=== PATIENT | female | born 1975 | race Caucasian/White ===

== ENCOUNTER → 2023-07-06 | Outpatient (REF) | payer BC, SELFPAY ==
[2023-07-06 10:08] LABS: Absolute Lymphocyte Count 1.98 X10^3/uL (0.83-4.51); Absolute Neutrophil Count 4.8 X10^3/uL (2.0-7.7); Basophil# 0.03 X10^3/uL; Basophil% 0.4 % (0-1); Eosinophil# 0.45 X10^3/uL; Eosinophils% 5.6 % (0-5); Hemoglobin 9.2 g/dL (12.0-15.0); Lymphocyte # 1.98 X10^3/ul (0.83-4.51); Lymphocyte % 24.6 % (19-41); Mean Corp Hgb Conc 32.9 g/dL (32-36); Mean Corpuscular Hgb 28.9 pg (27.0-32.0); Mean Corpuscular Volume 88.1 fL (81-99); Mean Platelet Vol. 10.4 fl (6.2-12.0); Monocyte% 9.9 % (0-10); NRBC Flagged by Analyzer 0 % (0-5); Neutrophil # 4.76 X10^3/uL (2.7-7.7); Neutrophil % 59.1 % (47-70); Platelet Count 445 K/mm3 (150-450); RBC Distribution Width CV 16.6 % (11.6-14.6); RBC Distribution Width SD 52.5 fl (35.1-43.9); Red Blood Count 3.18 M/mm3 (4.2-5.4); White Blood Count 8.1 K/mm3 (4.4-11.0)
[2023-07-06 10:30] LABS: Vitamin B12 468 pg/mL (211-911); Vitamin D,25 Hydroxy 58.5 ng/mL
[2023-07-06 10:55] LABS: Anion Gap 4 (5-15); BUN 9 mg/dL (7-18); Calcium,Total 10.4 mg/dL (8.5-10.1); Chloride 97 mmol/L (98-107); Creatinine, Serum 1.13 mg/dL (0.55-1.02); EST Glomerular Filtration Rate 54 mL/min (>60); Est Glom Filt Rate - Afr Amer 66 mL/min (>60); Glucose 137 mg/dL (74-106); Magnesium 2.2 mg/dL (1.6-2.6); Potassium 4.3 mmol/L (3.5-5.1); Sodium Level 130 mmol/L (136-145); Thyroid Stim Hormone (TSH) 1.79 uIU/mL (0.358-3.74)
== END ==
LOC: OLS.SW 08:50
PROVIDERS: PCP Family Medicine; Visit Provider Internal Medicine
DX: Z79.2 Long term (current) use of antibiotics (principal); Z00.00 Encounter for general adult medical examination without abnormal findings
CPT/HCPCS: 36415; 80048; 82306; 82607; 83735; 84443; 85025

== ENCOUNTER → 2023-07-09 | Outpatient (REF) | payer BC, SELFPAY ==
[2023-07-09 09:25] LABS: CPK Total, Creatine Kinase 48 U/L (26-192)
== END ==
LOC: OLS.SW 05:00
PROVIDERS: PCP Family Medicine; Visit Provider Internal Medicine
DX: Z79.2 Long term (current) use of antibiotics (principal); Z00.00 Encounter for general adult medical examination without abnormal findings
CPT/HCPCS: 36415; 82550

== ENCOUNTER 2024-02-12 14:30 | Outpatient (RCR) | payer BC, SELFPAY ==
--- NOTE | 2023-11-13 11:33 | HP.PTEVAL_ITS ---
Patient's Visit Information Visit Information Visit Information: AUTUMN DELACRUZ is a 48 year old F referred to Physical Therapy by OANH LUCAS with a diagnosis of Myofascial Pain. Date of Evaluation: 11/13/23 Physical Therapist: Padmini Dutta DPT Visit Plan Frequency: 2x /Week Duration: 4 Weeks Plan: Aquatic PT-Focus on LE and core strength/stabilization-ROM and UE strength, pain mgmt and functional mobility-GENTLE! 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 The right side is now positive for MRSA again. She has so much pain and no strength from her SI joint up. Her left arm is good. Lots of decreased strength in her core and right arm. She d oes not currently have any open wounds. Her pain in her shoulder is a 6/10 and her back is a 4/10- that is constant. If she sits for an hour and a half the pain will increase in her back to a 8/10. The pain does not radiate above the belt line. The pain in the shoulder does radiate to the elbow and rarely to the hand. The right hand does not have N/T. The left first three fingers are numb- she has had an EMG and she has moderate carpal tunnel. She has no pain in the legs or N/T in the toes. 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 Trying to sleep is a nightmare- she is a side sleeper but she can't- she is sleeping on her left side and on her back. Goals: improve her ROM and decrease pain so that she can sleep better at night. Therapy: PT on just her arm at [facility]. She is able to perform all ADL's it just takes her longer. 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 PMHx: MRSA Meds: doxycycline, Effexor, flexural, Celebrex, Pantropolol Objective Objective: Posture: forward head, rounded shoulders- can correct with verbal cues but does not maintain Observation: scar over right anterior shoulder- guarded- very slow and methodical with all movement Gait: slow alicia and guarded- decreased lumbar rotation and arm swing bilateral HR/TR: able with UE A SLS: Left: 3 seconds Right: 1 second then loss of balance ROM: Lumbar: Flexion: hands to knees with pain Extn: neutral with pain, SB and Rotation: WNL without pain but increased cavitation's with SB Bilateral LE: WFL in all other planes. Cervical: WFL with cervical fusions. Shoulder Right: Flexion: 110 degrees Abd: 90 degrees IR: to belt line, ER: 40 degrees, Elbow/Wrist: WNL Left: WNL in all planes Strength: Shoulder: Right: 2+/5 throughout, Elbow: 3+/5 Left: 4-/5 throughout, Elbow: 4-/[address] [employer]: minimal. Scap: poor, Core: poor, Hip: 4-/5 throughout, Knee: 4-/5 throghout, Ankle: 4+/5 Sensation: WNL to gross touch throughout with the exception of the right shoulder is diminished Balance/Special Test Scores Lower Extremity Functional Score: 22 Goals Goal 1:: Patient will be I with HEP and progression Goal Time Frame: 4-6 Weeks Goal 2:: Patient will maintain proper posture t/o tx session to demo increased core s/s Goal Time Frame: 4-6 Weeks Goal 3:: Patient will demo FULL AROM of the right shoulder Goal Time Frame: 4-6 Weeks Goal 4:: Patient will report sleeping through the night for 1 night Goal Time Frame: 4-6 Weeks Goal 5:: Patient will report less than 2/10 pain for 1 day Goal Time Frame: 4-6 Weeks Goal 6:: Patient will report 80% improvement Goal Time Frame: 4-6 Weeks Rehabilitation Potential Physical Therapy Diagnosis: Patient presents with hypomobility- she has decreased right shoulder ROM, lumbar ROM, LE, UE, scapular and core strength/stabilization, proprioception, flex and muscular endurance leading to increased pain with ADL's. Rehabilitation Potential: Fair Anticipated Interventions Patient/Client Instruction: Educate patient on: Benefits of Fitness Program Therapeutic Exercise to Include: Strength training, Endurance training, Coordination, Agility training, Body mechanics, Postural training, Flexibilty training, Gait and locomotor training, Neuromotor development, In an aquatic setting, Dynamic Lumbar Stabilization and Scapular Strength/Stabilization For the Purpose of:: To improve muscle performance and motor function Text: Thank you for the opportunity to evaluate your patient. For Medicare and Medicare HMO plans, please review the plan of care and approve it. It will need to be FAXED BACK to us at [phone] for Medicare purposes. For Medicare only, by signing this I certify the plan of care. Please let me know if there are questions or concerns regarding this plan of care. Physician Signature: Date:
--- NOTE | 2023-11-13 11:34 | HP.PTEVAL_ITS ---
Patient's Visit Information Visit Information Visit Information: AUTUMN DELACRUZ is a 48 year old F referred to Physical Therapy by OANH LUCAS with a diagnosis of Myofascial Pain. Date of Evaluation: 11/13/23 Physical Therapist: Padmini Dutta DPT Visit Plan Frequency: 2x /Week Duration: 4 Weeks Plan: Aquatic PT-Focus on LE and core strength/stabilization-ROM and UE strength, pain mgmt and functional mobility-GENTLE! 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 The right side is now positive for MRSA again. She has so much pain and no strength from her SI joint up. Her left arm is good. Lots of decreased strength in her core and right arm. She d oes not currently have any open wounds. Her pain in her shoulder is a 6/10 and her back is a 4/10- that is constant. If she sits for an hour and a half the pain will increase in her back to a 8/10. The pain does not radiate above the belt line. The pain in the shoulder does radiate to the elbow and rarely to the hand. The right hand does not have N/T. The left first three fingers are numb- she has had an EMG and she has moderate carpal tunnel. She has no pain in the legs or N/T in the toes. 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 Trying to sleep is a nightmare- she is a side sleeper but she can't- she is sleeping on her left side and on her back. Goals: improve her ROM and decrease pain so that she can sleep better at night. Therapy: PT on just her arm at [facility]. She is able to perform all ADL's it just takes her longer. 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 PMHx: MRSA Meds: doxycycline, Effexor, flexural, Celebrex, Pantropolol Objective Objective: Posture: forward head, rounded shoulders- can correct with verbal cues but does not maintain Observation: scar over right anterior shoulder- guarded- very slow and methodical with all movement Gait: slow alicia and guarded- decreased lumbar rotation and arm swing bilateral HR/TR: able with UE A SLS: Left: 3 seconds Right: 1 second then loss of balance ROM: Lumbar: Flexion: hands to knees with pain Extn: neutral with pain, SB and Rotation: WNL without pain but increased cavitation's with SB Bilateral LE: WFL in all other planes. Cervical: WFL with cervical fusions. Shoulder Right: Flexion: 110 degrees Abd: 90 degrees IR: to belt line, ER: 40 degrees, Elbow/Wrist: WNL Left: WNL in all planes Strength: Shoulder: Right: 2+/5 throughout, Elbow: 3+/5 Left: 4-/5 throughout, Elbow: 4-/5 Mining Teacher: minimal. Scap: poor, Core: poor, Hip: 4-/5 throughout, Knee: 4-/5 throughout, Ankle: 4+/5 Sensation: WNL to gross touch throughout with the exception of the right shoulder is diminished Flex: hamstrings: severe, Gastroc: severe Balance/Special Test Scores Lower Extremity Functional Score: 22 Goals Goal 1:: Patient will be I with HEP and progression Goal Time Frame: 4-6 Weeks Goal 2:: Patient will maintain proper posture t/o tx session to demo increased core s/s Goal Time Frame: 4-6 Weeks Goal 3:: Patient will demo FULL AROM of the right shoulder Goal Time Frame: 4-6 Weeks Goal 4:: Patient will report sleeping through the night for 1 night Goal Time Frame: 4-6 Weeks Goal 5:: Patient will report less than 2/10 pain for 1 day Goal Time Frame: 4-6 Weeks Goal 6:: Patient will report 80% improvement Goal Time Frame: 4-6 Weeks Rehabilitation Potential Physical Therapy Diagnosis: Patient presents with hypomobility- she has decreased right shoulder ROM, lumbar ROM, LE, UE, scapular and core strength/stabilization, proprioception, flex and muscular endurance leading to increased pain with ADL's. Rehabilitation Potential: Fair Anticipated Interventions Patient/Client Instruction: Educate patient on: Benefits of Fitness Program Therapeutic Exercise to Include: Strength training, Endurance training, Coordination, Agility training, Body mechanics, Postural training, Flexibilty training, Gait and locomotor training, Neuromotor development, In an aquatic setting, Dynamic Lumbar Stabilization and Scapular Strength/Stabilization For the Purpose of:: To improve muscle performance and motor function Text: Thank you for the opportunity to evaluate your patient. For Medicare and Medicare HMO plans, please review the plan of care and approve it. It will need to be FAXED BACK to us at [phone] for Medicare purposes. For Medicare only, by signing this I certify the plan of care. Please let me know if there are questions or concerns regarding this plan of care. Physician Signature: Date:
--- NOTE | 2023-12-20 12:24 | HP.PTREVAL ---
Re-Evaluation Intro: OANH LUCAS, It has been my pleasure to treat AUTUMN DELACRUZ over the last 10 visits for Myofascial Pain. Please see the progress note below for an update on the physical therapy plan of care! Subjective Subjective: Patient reports that she feels that water therapy has been really helpful- she feels that the muscle is now more the issue- T12 and over is now the issue and is making it a little hard to breathe. She is using a roga to roll it out at home- she goes back to see the spinal surgeon in January. She feels that she is 80% better. 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 Objective Objective/Function: Posture: forward head, rounded shoulders- can correct with verbal cues but does not maintain Observation: scar over right anterior shoulder- less guarded- more fluid movements today Gait: normal alicia decreased lumbar rotation and arm swing bilateral HR/TR: able with UE A SLS: Left: 10 seconds Right: 10 second- much improved ROM: Lumbar: Flexion: hands to the floor Extn: WNL, SB and Rotation: WNL without pain Bilateral LE: WFL in all other planes. Cervical: WFL with cervical fusions. Shoulder Right: Flexion: 130 degrees Abd: 120 degrees IR: to belt line, ER: 40 degrees, Elbow/Wrist: WNL Left: WNL in all planes Strength: Shoulder: Right: 2+/5 throughout, Elbow: 4+/5 Left: 4+/5 throughout, Disc Pad Grinding Machine Feeder: good. Scap: fair, Core: fair, Hip: 4+/5 throughout, Knee: 4+/5 throughout, Ankle: 4+/5 Sensation: WNL to gross touch throughout with the exception of the right shoulder is diminished Flex: hamstrings: severe, Gastroc: severe Plan Plan Plan: Continue Aquatic PT-Focus on LE and core strength/stabilization-ROM and UE strength, pain mgmt and functional mobility-GENTLE! Balance/Gait/Functional tests Balance/Special Test Scores Lower Extremity Functional Score: 45 Goals Goals Goal 1:: Patient will be I with HEP and progression Goal Time Frame: 4-6 Weeks Goal Progress: Progressing Goal 2:: Patient will maintain proper posture t/o tx session to demo increased core s/s Goal Time Frame: 4-6 Weeks Goal Progress: Progressing Goal 3:: Patient will demo FULL AROM of the right shoulder Goal Time Frame: 4-6 Weeks Goal Progress: Progressing Goal 4:: Patient will report sleeping through the night for 1 night Goal Time Frame: 4-6 Weeks Goal Progress: Progressing Goal 5:: Patient will report less than 2/10 pain for 1 day Goal Time Frame: 4-6 Weeks Goal Progress: Progressing Goal 6:: Patient will report 80% improvement Goal Time Frame: 4-6 Weeks Goal Progress: Progressing Anticipated Interventions Anticipated Interventions Patient/Client Instruction: Educate patient on: Benefits of Fitness Program Therapeutic Exercise to Include: Strength training, Endurance training, Coordination, Agility training, Body mechanics, Postural training, Flexibilty training, Gait and locomotor training, Neuromotor development, In an aquatic setting, Dynamic Lumbar Stabilization and Scapular Strength/Stabilization For the Purpose of:: To improve muscle performance and motor function Re-Evaluation Ending Re-evaluation ending: Please do not hesitate to contact me at [phone] by phone or if you have questions or concerns regarding this new plan of care! Sincerely, Padmini Dutta DPT
--- NOTE | 2024-02-12 14:53 | HP.PTDCSUM_ITS ---
Discharge Summary D/C summary: It has been my pleasure to treat YASMEEN DELACRUZ referred by OANH LUCAS, with the diagnosis of Myofascial Pain for a total of 25 visit(s). Discharge Date: 02/12/24 Please see the following information for a summary of their discharge status. Subjective Subjective: Pt. reports overall doing well today. Pt. reports some slight R shoulder pain, but other dominguez no issues. Pt. reports being 90% better overall. Pt. plans on attending [facility] to complete exercises. N/T noted on R side, slightly on L hand. Pain R SH: Pain Intensity (Out of 10): 1 thoracic spine: Pain Intensity (Out of 10): 0 LBP: Pain Intensity (Out of 10): 0 L hip: Pain Intensity (Out of 10): 0 Overall Improvement % Improvement: 90 Objective Objective/Function: Pt. reports continued issues with sleeping, both shoulders and R hip at times. Pt. reports that nights tend to be the worst. Pt. is overall doing much better, but is still limited in some of her R shoulder end range of motion and strength. MMT: symmetrical R and L shoulder strength, except ER is 50% of L and deltoid is 50% strength of L side. Yasmeen continues to progress. She is I with her aquatic exercises and plans to continue this program at [place]. Pt. to be DC from PT at this point in time. Goals Goal 1:: Patient will be I with HEP and progression Goal Progress: Goal Met Goal 2:: Patient will maintain proper posture t/o tx session to demo increased core s/s Goal Progress: Progressing Goal 3:: Patient will demo FULL AROM of the right shoulder Goal Progress: Goal Met Goal 4:: Patient will report sleeping through the night for 1 night Goal Progress: Progressing Goal 5:: Patient will report less than 2/10 pain for 1 day Goal Progress: Progressing Goal 6:: Patient will report 80% improvement Goal Progress: Goal Met Plan Plan: Pt. to be DC from PT at this point in time. D/C Information d/c sentence: If there are questions or concerns regarding this patient's physical therapy, please feel free to call me at [phone]. Thank you for the referral of this patient. Sincerely, Jerome Null Sipos, DPT Balance/Gait/Functional tests Balance/Special Test Scores Lower Extremity Functional Score: 22 Quick DASH Score: 29.5450 Improvement % Improvement: 90
== END 2024-02-12 19:00 | disposition home or self-care (01) ==
LOC: PT 14:30
DX: M79.18 Myalgia, other site (principal)
CPT/HCPCS: 97113; 97162; 97530